=== PATIENT | male | born 1940 | race Caucasian/White ===

== ENCOUNTER → 2016-12-25 | Outpatient (CLI) | payer MEDICARE, OTHER ==
[~2016-12-25] MED LIST: ASPI81TA50 PO; BUTA1CAP30 PO; FLUT9.9S NS; LORA-702 PO; MULT-658 PO; OMEG1CAP6 PO; TAMS0.4C2 PO; VALS80TA3 PO; VITA200C7 PO
[2016-12-25 10:58] LABS: PTH INTACT INTERPRETATION ** Comment **
[2016-12-25 11:31] LABS: PATH.CAST-FLAG NOT PRESENT; SPERM-FLAG NOT PRESENT; SRC-FLAG NOT PRESENT; XTAL-FLAG NOT PRESENT; YLC-FLAG NOT PRESENT
[2016-12-25 11:35] LABS: HEMATOCRIT 42.6 % (39.2-51.8); HEMOGLOBIN 14.5 g/dL (13.7-18.0); WHITE BLOOD COUNT 6.5 x10^3/uL (3.4-10)
[2016-12-25 11:37] LABS: BLOOD UREA NITROGEN 32 mg/dL (7-18)
[2016-12-25 11:41] LABS: ASPARTATE AMINO TRANSFERASE 33 U/L (15-37); FERRITIN 159.1 ng/mL (26-388); TOTAL IRON BINDING CAPACITY 312 mcg/dL (250-450)
[2016-12-25 11:46] LABS: PARATHYROID HORMONE INTACT 106.1 pg/mL (14-72)
[2016-12-26 13:42] LABS: ANA SCREEN NEGATIVE (Negative)
[2016-12-27 12:07] LABS: A/G RATIO 1.1 (0.7-1.7); ALBUMIN 3.9 g/dL (2.9-4.4); ALPHA-1-GLOBULIN 0.2 g/dL (0.0-0.4); GAMMA GLOBULIN 1.5 g/dL (0.4-1.8); PROTEIN TOTAL 7.4 g/dL (6.0-8.5)
[2016-12-28 03:06] LABS: COMPLEMENT C3 138 mg/dL (82-167); COMPLEMENT C4 25 mg/dL (14-44); COMPLEMENT TOTAL (CH50) >60 U/mL (42-60)
[2016-12-28 12:07] LABS: UR ALBUMIN 55.5 % (.); UR ALPHA-1-GLOBULIN 5.1 % (.); UR ALPHA-2-GLOBULIN 12.3 % (.); UR BETA GLOBULIN 18.9 % (.); UR GAMMA GLOBULIN 8.2 % (.); UR M-SPIKE % 7.5 % (Not Observed)
== END | disposition home or self-care (01) ==
LOC: LAB 10:32
DX: I12.9 Hypertensive chronic kidney disease with stage 1 through stage 4 chronic kidney disease, or unspecified chronic kidney disease (principal); N18.4 Chronic kidney disease, stage 4 (severe); D64.9 Anemia, unspecified; R80.3 Bence Jones proteinuria; R31.1 Benign essential microscopic hematuria; R06.02 Shortness of breath; R79.89 Other specified abnormal findings of blood chemistry
CPT/HCPCS: 36415; 80053; 80061; 80074; 81001; 82306; 82310; 82570; 82728; 83036; 83516; 83540; 83550; 83735; 83970; 84100; 84155; 84156; 84165; 84166; 84550; 85025; 85651; 86038; 86160; 86162; 86225; 86256; 93005

== ENCOUNTER → 2016-12-25 | Outpatient (CLI) | payer MEDICARE, OTHER | END | disposition home or self-care (01) | LOC: OUT 09:08 → EDSTATUS 09:45 | PROVIDERS: ATTEND Internal Medicine Nephrology | DX: N40.1 Benign prostatic hyperplasia with lower urinary tract symptoms (principal); D64.9 Anemia, unspecified; I12.9 Hypertensive chronic kidney disease with stage 1 through stage 4 chronic kidney disease, or unspecified chronic kidney disease; N18.4 Chronic kidney disease, stage 4 (severe) | CPT/HCPCS: 71020; 76770 ==

== ENCOUNTER → 2017-03-12 | Outpatient (CLI) | payer MEDICARE, OTHER ==
[2017-03-12 11:18] LABS: HEMOGLOBIN 11.4 g/dL (13.7-18.0); WHITE BLOOD COUNT 7.3 x10^3/uL (3.4-10)
[2017-03-12 11:23] LABS: ASPARTATE AMINO TRANSFERASE 19 U/L (15-37); BLOOD UREA NITROGEN 34 mg/dL (7-18)
== END | disposition home or self-care (01) ==
LOC: LAB 10:55
PROVIDERS: ATTEND Internal Medicine Nephrology
DX: I12.9 Hypertensive chronic kidney disease with stage 1 through stage 4 chronic kidney disease, or unspecified chronic kidney disease (principal); N18.4 Chronic kidney disease, stage 4 (severe); R80.3 Bence Jones proteinuria; R31.1 Benign essential microscopic hematuria; D64.9 Anemia, unspecified; E85.9 Amyloidosis, unspecified; R06.02 Shortness of breath
CPT/HCPCS: 36415; 80053; 81001; 83735; 84100; 84550; 85025

== ENCOUNTER → 2017-04-23 | Outpatient (CLI) | payer MEDICARE, OTHER ==
[2017-04-23 10:13] LABS: BASOPHILS # (AUTO) 0.05 x10^3/uL (0-0.1); BASOPHILS % (AUTO) 1 % (0-1); EOSINOPHILS # (AUTO) 0.51 x10^3/uL (0-0.4); EOSINOPHILS % (AUTO) 9 % (1-7); LYMPHOCYTES # (AUTO) 0.99 x10^3/uL (1-3.4); LYMPHOCYTES % (AUTO) 19 % (22-44); MD NO; MEAN CORPUSCULAR HEMOGLOBIN 31.8 pg (27.5-34.5); MEAN CORPUSCULAR HGB CONC 33.5 g/dL (33.2-36.2); MEAN CORPUSCULAR VOLUME 94.9 fL (81-97); MEAN PLATELET VOLUME 6.9 fL (7.4-10.4); MONOCYTES # (AUTO) 0.74 x10^3/uL (0.2-0.8); MONOCYTES % (AUTO) 14 % (2-9); NEUTROPHILS % (AUTO) 58 % (42-75); PLATELET COUNT 225 x10^3/uL (130-400); RED CELL DISTRIBUTION WIDTH 16.9 % (9.4-14.8)
[2017-04-23 10:23] LABS: MICROSCOPIC AUTO
[2017-04-23 10:24] LABS: CALCIUM 8.7 mg/dL (8.5-10.1)
[2017-04-23 10:28] LABS: ALANINE AMINOTRANSFERASE 31 U/L (12-78); ALBUMIN 3.6 g/dL (3.4-5.0); ANION GAP 5 mmol/L (5-15); CHLORIDE 107 mmol/L (98-107); CREATININE 2.95 mg/dL (0.7-1.3)
[2017-04-23 10:30] LABS: ALKALINE PHOSPHATASE 120 U/L (45-117); BILIRUBIN,TOTAL 0.3 mg/dL (0.2-1.0); CALCIUM 8.6 mg/dL (8.5-10.1); TOTAL PROTEIN 7.4 g/dL (6.4-8.2)
== END | disposition home or self-care (01) ==
LOC: LAB 09:56
PROVIDERS: ATTEND Internal Medicine Nephrology
DX: I12.9 Hypertensive chronic kidney disease with stage 1 through stage 4 chronic kidney disease, or unspecified chronic kidney disease (principal); N18.4 Chronic kidney disease, stage 4 (severe); E85.9 Amyloidosis, unspecified; R80.3 Bence Jones proteinuria; R31.1 Benign essential microscopic hematuria
CPT/HCPCS: 36415; 80053; 81001; 82310; 82570; 83970; 84100; 84156; 85025

== ENCOUNTER → 2017-05-30 | Outpatient (CLI) | payer MEDICARE, OTHER ==
[2017-05-30 10:45] LABS: BASOPHILS # (AUTO) 0.03 x10^3/uL (0-0.1); BASOPHILS % (AUTO) 1 % (0-1); EOSINOPHILS # (AUTO) 0.62 x10^3/uL (0-0.4); EOSINOPHILS % (AUTO) 11 % (1-7); LYMPHOCYTES % (AUTO) 23 % (22-44); MD NO; MEAN CORPUSCULAR HEMOGLOBIN 32.6 pg (27.5-34.5); MEAN CORPUSCULAR HGB CONC 33.8 g/dL (33.2-36.2); MEAN CORPUSCULAR VOLUME 96.5 fL (81-97); MEAN PLATELET VOLUME 7.8 fL (7.4-10.4); MONOCYTES # (AUTO) 0.76 x10^3/uL (0.2-0.8); MONOCYTES % (AUTO) 13 % (2-9); NEUTROPHILS # (AUTO) 3.01 x10^3/uL (1.8-6.8); NEUTROPHILS % (AUTO) 53 % (42-75); PLATELET COUNT 184 x10^3/uL (130-400); RED BLOOD COUNT 3.74 x10^6/uL (4.38-5.82); RED CELL DISTRIBUTION WIDTH 15.4 % (9.4-14.8)
[2017-05-30 10:51] LABS: ALANINE AMINOTRANSFERASE 30 U/L (12-78); ALBUMIN 3.7 g/dL (3.4-5.0); ANION GAP 7 mmol/L (5-15); CALCIUM 8.2 mg/dL (8.5-10.1); CHLORIDE 108 mmol/L (98-107); CREATININE 3.24 mg/dL (0.7-1.3)
[2017-05-30 10:53] LABS: ALKALINE PHOSPHATASE 113 U/L (45-117); BILIRUBIN,TOTAL 0.3 mg/dL (0.2-1.0); TOTAL PROTEIN 7.1 g/dL (6.4-8.2)
[2017-05-30 10:59] LABS: MICROSCOPIC AUTO
== END | disposition home or self-care (01) ==
LOC: LAB 10:22
PROVIDERS: ATTEND Internal Medicine Nephrology
DX: I12.9 Hypertensive chronic kidney disease with stage 1 through stage 4 chronic kidney disease, or unspecified chronic kidney disease (principal); N18.4 Chronic kidney disease, stage 4 (severe); D63.1 Anemia in chronic kidney disease; E85.9 Amyloidosis, unspecified; R80.9 Proteinuria, unspecified; R06.02 Shortness of breath
CPT/HCPCS: 36415; 80053; 81001; 82306; 82570; 83970; 84100; 84156; 85025

== ENCOUNTER → 2017-07-23 | Outpatient (CLI) | payer MEDICARE, OTHER ==
[2017-07-23 10:26] LABS: BASOPHILS # (AUTO) 0.03 x10^3/uL (0-0.1); BASOPHILS % (AUTO) 0 % (0-1); EOSINOPHILS # (AUTO) 0.68 x10^3/uL (0-0.4); EOSINOPHILS % (AUTO) 9 % (1-7); LYMPHOCYTES # (AUTO) 1.34 x10^3/uL (1-3.4); LYMPHOCYTES % (AUTO) 18 % (22-44); MD NO; MEAN CORPUSCULAR HEMOGLOBIN 33.2 pg (27.5-34.5); MEAN CORPUSCULAR HGB CONC 34.6 g/dL (33.2-36.2); MEAN CORPUSCULAR VOLUME 95.8 fL (81-97); MEAN PLATELET VOLUME 7.9 fL (7.4-10.4); MONOCYTES # (AUTO) 0.76 x10^3/uL (0.2-0.8); MONOCYTES % (AUTO) 10 % (2-9); NEUTROPHILS # (AUTO) 4.72 x10^3/uL (1.8-6.8); NEUTROPHILS % (AUTO) 63 % (42-75); PLATELET COUNT 235 x10^3/uL (130-400); RED BLOOD COUNT 4.26 x10^6/uL (4.38-5.82)
[2017-07-23 10:27] LABS: MICROSCOPIC AUTO
[2017-07-23 10:35] LABS: ALBUMIN 3.9 g/dL (3.4-5.0); ANION GAP 7 mmol/L (5-15); CALCIUM 8.9 mg/dL (8.5-10.1); CHLORIDE 106 mmol/L (98-107)
[2017-07-23 10:39] LABS: ALANINE AMINOTRANSFERASE 32 U/L (12-78); ALKALINE PHOSPHATASE 114 U/L (45-117); BILIRUBIN,TOTAL 0.5 mg/dL (0.2-1.0); CREATININE 3.45 mg/dL (0.7-1.3); TOTAL PROTEIN 7.8 g/dL (6.4-8.2)
== END | disposition home or self-care (01) ==
LOC: LAB 10:02
PROVIDERS: ATTEND Internal Medicine Nephrology
DX: I12.9 Hypertensive chronic kidney disease with stage 1 through stage 4 chronic kidney disease, or unspecified chronic kidney disease (principal); N18.4 Chronic kidney disease, stage 4 (severe); D63.1 Anemia in chronic kidney disease; E85.9 Amyloidosis, unspecified; R80.9 Proteinuria, unspecified
CPT/HCPCS: 36415; 80053; 81001; 82570; 84100; 84156; 85025

== ENCOUNTER → 2017-09-03 | Outpatient (CLI) | payer MEDICARE, OTHER ==
[2017-09-03 10:27] LABS: BASOPHILS # (AUTO) 0.02 x10^3/uL (0-0.1); BASOPHILS % (AUTO) 0 % (0-1); EOSINOPHILS % (AUTO) 8 % (1-7); LYMPHOCYTES # (AUTO) 1.05 x10^3/uL (1-3.4); LYMPHOCYTES % (AUTO) 20 % (22-44); MD NO; MEAN CORPUSCULAR HEMOGLOBIN 32.1 pg (27.5-34.5); MEAN CORPUSCULAR HGB CONC 34.3 g/dL (33.2-36.2); MEAN CORPUSCULAR VOLUME 93.4 fL (81-97); MEAN PLATELET VOLUME 7.7 fL (7.4-10.4); MONOCYTES # (AUTO) 0.73 x10^3/uL (0.2-0.8); MONOCYTES % (AUTO) 14 % (2-9); NEUTROPHILS # (AUTO) 3.05 x10^3/uL (1.8-6.8); NEUTROPHILS % (AUTO) 58 % (42-75); PLATELET COUNT 194 x10^3/uL (130-400); RED BLOOD COUNT 3.85 x10^6/uL (4.38-5.82); RED CELL DISTRIBUTION WIDTH 12.8 % (9.4-14.8)
[2017-09-03 10:31] LABS: MICROSCOPIC AUTO
[2017-09-03 10:39] LABS: ALANINE AMINOTRANSFERASE 32 U/L (12-78); ALBUMIN 3.7 g/dL (3.4-5.0); ANION GAP 7 mmol/L (5-15); CALCIUM 8.5 mg/dL (8.5-10.1); CHLORIDE 110 mmol/L (98-107); CREATININE 4.57 mg/dL (0.7-1.3)
[2017-09-03 10:41] LABS: ALKALINE PHOSPHATASE 103 U/L (45-117); BILIRUBIN,TOTAL 0.6 mg/dL (0.2-1.0); CREATININE,URINE RANDOM 88.4 mg/dL; TOTAL PROTEIN 7.4 g/dL (6.4-8.2)
== END | disposition home or self-care (01) ==
LOC: LAB 10:00
PROVIDERS: ATTEND Internal Medicine Nephrology
DX: I12.9 Hypertensive chronic kidney disease with stage 1 through stage 4 chronic kidney disease, or unspecified chronic kidney disease (principal); N18.4 Chronic kidney disease, stage 4 (severe); E85.9 Amyloidosis, unspecified; R80.9 Proteinuria, unspecified
CPT/HCPCS: 36415; 80053; 81001; 82570; 84100; 84156; 84550; 85025

== ENCOUNTER → 2017-09-24 | Outpatient (CLI) | payer MEDICARE, OTHER ==
[2017-09-24 11:28] LABS: ALANINE AMINOTRANSFERASE 29 U/L (12-78); ALBUMIN 3.8 g/dL (3.4-5.0); ANION GAP 9 mmol/L (5-15); CALCIUM 8.4 mg/dL (8.5-10.1); CHLORIDE 104 mmol/L (98-107); CREATININE 3.52 mg/dL (0.7-1.3)
[2017-09-24 11:30] LABS: ALKALINE PHOSPHATASE 93 U/L (45-117); BILIRUBIN,TOTAL 0.9 mg/dL (0.2-1.0); TOTAL PROTEIN 7.6 g/dL (6.4-8.2)
[2017-09-24 11:50] LABS: CREATININE,URINE RANDOM 92.8 mg/dL
[2017-09-24 11:55] LABS: MICROSCOPIC AUTO
== END | disposition home or self-care (01) ==
LOC: LAB 10:59
PROVIDERS: ATTEND Internal Medicine Nephrology
DX: I12.9 Hypertensive chronic kidney disease with stage 1 through stage 4 chronic kidney disease, or unspecified chronic kidney disease (principal); N18.5 Chronic kidney disease, stage 5; E85.9 Amyloidosis, unspecified; R80.9 Proteinuria, unspecified
CPT/HCPCS: 36415; 80053; 81001; 82570; 84100; 84156

== ENCOUNTER 2017-10-01 10:20 | Day surgery (SDC) | payer MEDICARE, OTHER ==
[~2017-10-01] VITALS: Ht 185.4 cm; Wt 80.1 kg
[~2017-10-01 10:20] MED LIST changes: +HEPARIN 1,000 UNITS/ML, 10ML ONE
[2017-10-01] MEDS ORDERED: SODIUM CHLORIDE 0.9% 1,000 ML IV SCH (11:14)
[2017-10-01 11:37] VITALS: BP 154/96
[2017-10-01] MEDS ORDERED: BORT3.5V SQ (11:54)
[2017-10-01] MEDS ORDERED: DEXAMETHASONE PO (11:54)
[2017-10-01] MEDS ORDERED: AMLO10TA2 PO (11:54)
[2017-10-01] MEDS ORDERED: CYCL50CA3 PO (11:54)
[2017-10-01] MEDS ORDERED: METO5TAB2 PO (11:54)
[2017-10-01] MEDS ORDERED: FENTANYL PF 100 MCG/2ML ONE (15:33)
[2017-10-01] MEDS ORDERED: EPHEDRINE 50 MG/ML, 1ML ONE (15:45)
[2017-10-01] MEDS ORDERED: PROPOFOL 10 MG/ML, 20ML ONE ×8 (15:53)
[2017-10-01] MEDS ORDERED: ONDANSETRON 2MG/ML, 2ML ONE ×7 (15:53)
[2017-10-01] MEDS ORDERED: DEXAMETHASONE 4 MG/ML, 1ML ONE ×5 (15:53)
[2017-10-01] MEDS ORDERED: CEFAZOLIN 1,000 MG ONE ×9 (15:53)
[2017-10-01] MEDS ORDERED: LABETALOL 5MG/ML, 20ML IV PRN (17:00)
[2017-10-01] MEDS ORDERED: HYDROcodone/APAP 7.5-325MG/15ML UDC PO PRN (17:00)
[2017-10-01] MEDS ORDERED: OXYcodone 5 MG/5 ML ORAL.SOL UDC PO PRN (17:00)
[2017-10-01] MEDS ORDERED: hydrALAzine 20 MG/ML, 1ML IV PRN (17:00)
[2017-10-01] MEDS ORDERED: ACETAMINOPHEN 325 MG TABLET PO PRN (17:00)
[2017-10-01] MEDS ORDERED: FENTANYL PF 100 MCG/2ML IV PRN (17:00)
[2017-10-01] MEDS ORDERED: ONDANSETRON ODT 8 MG PO PRN (17:00)
== END 2017-10-01 18:35 ==
LOC: OUT 10:20
PROVIDERS: ATTEND Surgery Vascular Surgery
DX: I12.0 Hypertensive chronic kidney disease with stage 5 chronic kidney disease or end stage renal disease (principal); N18.6 End stage renal disease
CPT/HCPCS: 36415; 36821; 80047; 93005; J0690; J1100; J1644; J2405; J2704; J3010; J7030

== ENCOUNTER → 2017-10-29 | Outpatient (CLI) | payer MEDICARE, OTHER ==
[~2017-10-29] MED LIST changes: +AMLO10TA2 PO; +BORT3.5V SQ; +CYCL50CA3 PO; +DEXAMETHASONE PO; -HEPARIN 1,000 UNITS/ML, 10ML ONE; +METO5TAB2 PO
[2017-10-29 10:44] LABS: BASOPHILS # (AUTO) 0.04 x10^3/uL (0-0.1); BASOPHILS % (AUTO) 1 % (0-1); EOSINOPHILS # (AUTO) 0.29 x10^3/uL (0-0.4); EOSINOPHILS % (AUTO) 7 % (1-7); LYMPHOCYTES # (AUTO) 0.51 x10^3/uL (1-3.4); LYMPHOCYTES % (AUTO) 12 % (22-44); MD NO; MEAN CORPUSCULAR HEMOGLOBIN 30.5 pg (27.5-34.5); MEAN CORPUSCULAR HGB CONC 33.3 g/dL (33.2-36.2); MEAN CORPUSCULAR VOLUME 91.6 fL (81-97); MEAN PLATELET VOLUME 7.8 fL (7.4-10.4); MONOCYTES # (AUTO) 0.66 x10^3/uL (0.2-0.8); MONOCYTES % (AUTO) 15 % (2-9); NEUTROPHILS # (AUTO) 2.89 x10^3/uL (1.8-6.8); NEUTROPHILS % (AUTO) 66 % (42-75); PLATELET COUNT 281 x10^3/uL (130-400); RED BLOOD COUNT 3.37 x10^6/uL (4.38-5.82); RED CELL DISTRIBUTION WIDTH 13.8 % (9.4-14.8)
[2017-10-29 10:47] LABS: MICROSCOPIC INDICATED
[2017-10-29 10:54] LABS: ALANINE AMINOTRANSFERASE 33 U/L (12-78); ALBUMIN 2.9 g/dL (3.4-5.0); ANION GAP 10 mmol/L (5-15); CALCIUM 8.3 mg/dL (8.5-10.1); CHLORIDE 108 mmol/L (98-107); CREATININE 3.99 mg/dL (0.7-1.3)
[2017-10-29 10:56] LABS: ALKALINE PHOSPHATASE 99 U/L (45-117); BILIRUBIN,TOTAL 0.3 mg/dL (0.2-1.0); TOTAL PROTEIN 6.5 g/dL (6.4-8.2)
== END | disposition home or self-care (01) ==
LOC: LAB 10:24
PROVIDERS: ATTEND Internal Medicine Nephrology
DX: I12.9 Hypertensive chronic kidney disease with stage 1 through stage 4 chronic kidney disease, or unspecified chronic kidney disease (principal); N18.5 Chronic kidney disease, stage 5; E85.9 Amyloidosis, unspecified; R80.9 Proteinuria, unspecified
CPT/HCPCS: 36415; 80053; 81001; 82570; 84100; 84156; 85025

== ENCOUNTER → 2017-11-01 | Outpatient (CLI) | payer MEDICARE, OTHER ==
[2017-11-01 13:26] LABS: MICROSCOPIC INDICATED
[2017-11-01 13:27] LABS: CULTURE INDICATED? ORDERED BY PHYSICIAN
== END | disposition home or self-care (01) ==
LOC: LAB 13:05
PROVIDERS: ATTEND Internal Medicine Nephrology
DX: J43.9 Emphysema, unspecified (principal); R82.71 Bacteriuria
CPT/HCPCS: 71046; 81001; 87086

== ENCOUNTER → 2017-11-22 | Outpatient (CLI) | payer MEDICARE, OTHER ==
[2017-11-22 10:48] LABS: MEAN CORPUSCULAR HEMOGLOBIN 30.1 pg (27.5-34.5); MEAN CORPUSCULAR HGB CONC 33.4 g/dL (33.2-36.2); MEAN CORPUSCULAR VOLUME 90.1 fL (81-97); MEAN PLATELET VOLUME 7.6 fL (7.4-10.4); PLATELET COUNT 303 x10^3/uL (130-400); RED BLOOD COUNT 3.75 x10^6/uL (4.38-5.82); RED CELL DISTRIBUTION WIDTH 15.8 % (9.4-14.8)
[2017-11-22 10:59] LABS: ALBUMIN 3.1 g/dL (3.4-5.0); ANION GAP 7 mmol/L (5-15); CALCIUM 8.4 mg/dL (8.5-10.1); CHLORIDE 107 mmol/L (98-107)
[2017-11-22 11:02] LABS: % IRON SATURATION 17 % (20-55); ALANINE AMINOTRANSFERASE 26 U/L (12-78); ALKALINE PHOSPHATASE 137 U/L (45-117); BILIRUBIN,TOTAL 0.3 mg/dL (0.2-1.0); CREATININE 3.69 mg/dL (0.7-1.3); IRON LEVEL 47 mcg/dL (65-175); TOTAL IRON BINDING CAPACITY 269 mcg/dL (250-450); TOTAL PROTEIN 7.1 g/dL (6.4-8.2)
[2017-11-22 11:19] LABS: MICROSCOPIC INDICATED
[2017-11-22 11:23] LABS: BASOPHILS # (AUTO) 0.04 x10^3/uL (0-0.1); BASOPHILS % (AUTO) 1 % (0-1); EOSINOPHILS # (AUTO) 0.57 x10^3/uL (0-0.4); EOSINOPHILS % (AUTO) 6 % (1-7); LYMPHOCYTES % (AUTO) 19 % (22-44); MD SCAN; MONOCYTES # (AUTO) 1.48 x10^3/uL (0.2-0.8); MONOCYTES % (AUTO) 16 % (2-9); NEUTROPHILS # (AUTO) 5.35 x10^3/uL (1.8-6.8); NEUTROPHILS % (AUTO) 58 % (42-75)
[2017-11-22 11:56] LABS: CULTURE INDICATED? NO
== END | disposition home or self-care (01) ==
LOC: LAB 10:26
PROVIDERS: ATTEND Internal Medicine Nephrology
DX: I12.0 Hypertensive chronic kidney disease with stage 5 chronic kidney disease or end stage renal disease (principal); N18.5 Chronic kidney disease, stage 5; E85.9 Amyloidosis, unspecified; R80.9 Proteinuria, unspecified
CPT/HCPCS: 36415; 80053; 81001; 82570; 82728; 83540; 83550; 84100; 84156; 85025

== ENCOUNTER → 2017-12-21 | Outpatient (CLI) | payer MEDICARE, OTHER ==
[~2017-12-21] MED LIST changes: -AMLO10TA2 PO; +AMLO10TA6 PO
[2017-12-21 09:25] LABS: MEAN CORPUSCULAR HGB CONC 33.3 g/dL (33.2-36.2); MEAN CORPUSCULAR VOLUME 90.1 fL (81-97); MEAN PLATELET VOLUME 8.6 fL (7.4-10.4); PLATELET COUNT 130 x10^3/uL (130-400); RED CELL DISTRIBUTION WIDTH 15.2 % (9.4-14.8)
[2017-12-21 09:33] LABS: ALANINE AMINOTRANSFERASE 24 U/L (12-78); ALBUMIN 3.4 g/dL (3.4-5.0); ANION GAP 7 mmol/L (5-15); CALCIUM 8.5 mg/dL (8.5-10.1); CHLORIDE 106 mmol/L (98-107); CREATININE 4.27 mg/dL (0.7-1.3)
[2017-12-21 09:35] LABS: ALKALINE PHOSPHATASE 125 U/L (45-117); BILIRUBIN,TOTAL 0.3 mg/dL (0.2-1.0); TOTAL PROTEIN 7.1 g/dL (6.4-8.2)
[2017-12-21 10:28] LABS: MICROSCOPIC INDICATED
[2017-12-21 11:09] LABS: CULTURE INDICATED? NO
== END | disposition home or self-care (01) ==
LOC: LAB 09:03
PROVIDERS: ATTEND Internal Medicine Nephrology
DX: I12.9 Hypertensive chronic kidney disease with stage 1 through stage 4 chronic kidney disease, or unspecified chronic kidney disease (principal); N18.4 Chronic kidney disease, stage 4 (severe); D63.1 Anemia in chronic kidney disease; E55.9 Vitamin D deficiency, unspecified; E85.9 Amyloidosis, unspecified; R80.1 Persistent proteinuria, unspecified
CPT/HCPCS: 36415; 80053; 81001; 81003; 82570; 84100; 84156; 85027

== ENCOUNTER → 2018-01-07 | Outpatient (CLI) | payer MEDICARE, OTHER ==
[2018-01-07 10:17] LABS: MICROSCOPIC AUTO
[2018-01-07 10:19] LABS: CULTURE INDICATED? NO
[2018-01-07 10:28] LABS: ALANINE AMINOTRANSFERASE 22 U/L (12-78); ALBUMIN 3.7 g/dL (3.4-5.0); ANION GAP 12 mmol/L (5-15); CALCIUM 8.6 mg/dL (8.5-10.1); CHLORIDE 105 mmol/L (98-107); CREATININE 4.55 mg/dL (0.7-1.3)
[2018-01-07 10:31] LABS: ALKALINE PHOSPHATASE 100 U/L (45-117); BILIRUBIN,TOTAL 0.4 mg/dL (0.2-1.0); TOTAL PROTEIN 7.3 g/dL (6.4-8.2)
== END | disposition home or self-care (01) ==
LOC: LAB 09:58
PROVIDERS: ATTEND Internal Medicine Nephrology
DX: I12.9 Hypertensive chronic kidney disease with stage 1 through stage 4 chronic kidney disease, or unspecified chronic kidney disease (principal); N18.4 Chronic kidney disease, stage 4 (severe); D63.1 Anemia in chronic kidney disease; E55.9 Vitamin D deficiency, unspecified; E85.9 Amyloidosis, unspecified; R80.1 Persistent proteinuria, unspecified
CPT/HCPCS: 36415; 80053; 81001; 82570; 84156

== ENCOUNTER → 2018-01-23 | Outpatient (CLI) | payer MEDICARE, OTHER ==
[2018-01-23 10:58] LABS: ANION GAP 9 mmol/L (5-15); CALCIUM 8.9 mg/dL (8.5-10.1); CHLORIDE 102 mmol/L (98-107); CREATININE 4.47 mg/dL (0.7-1.3)
[2018-01-23 11:00] LABS: MICROSCOPIC INDICATED
[2018-01-23 11:20] LABS: CULTURE INDICATED? NO
== END | disposition home or self-care (01) ==
LOC: LAB 10:21
PROVIDERS: ATTEND Internal Medicine Nephrology
DX: I12.9 Hypertensive chronic kidney disease with stage 1 through stage 4 chronic kidney disease, or unspecified chronic kidney disease (principal); N18.5 Chronic kidney disease, stage 5; E85.9 Amyloidosis, unspecified; R80.1 Persistent proteinuria, unspecified; R60.9 Edema, unspecified
CPT/HCPCS: 36415; 80069; 81001; 82570; 84156

== ENCOUNTER → 2018-02-06 | Outpatient (CLI) | payer MEDICARE, OTHER ==
[2018-02-06 10:46] LABS: MICROSCOPIC AUTO
[2018-02-06 10:58] LABS: % IRON SATURATION 25 % (20-55); ALANINE AMINOTRANSFERASE 24 U/L (12-78); ALBUMIN 3.8 g/dL (3.4-5.0); ANION GAP 7 mmol/L (5-15); CALCIUM 8.5 mg/dL (8.5-10.1); CHLORIDE 106 mmol/L (98-107); CREATININE 4.17 mg/dL (0.7-1.3); IRON LEVEL 70 mcg/dL (65-175); TOTAL IRON BINDING CAPACITY 285 mcg/dL (250-450)
[2018-02-06 11:00] LABS: BASOPHILS # (AUTO) 0.02 x10^3/uL (0-0.1); BASOPHILS % (AUTO) 0 % (0-1); EOSINOPHILS # (AUTO) 0.32 x10^3/uL (0-0.4); EOSINOPHILS % (AUTO) 5 % (1-7); LYMPHOCYTES # (AUTO) 0.78 x10^3/uL (1-3.4); LYMPHOCYTES % (AUTO) 13 % (22-44); MD NO; MEAN CORPUSCULAR HEMOGLOBIN 29.4 pg (27.5-34.5); MEAN CORPUSCULAR HGB CONC 33.1 g/dL (33.2-36.2); MEAN CORPUSCULAR VOLUME 89.1 fL (81-97); MONOCYTES # (AUTO) 0.81 x10^3/uL (0.2-0.8); MONOCYTES % (AUTO) 14 % (2-9); NEUTROPHILS # (AUTO) 3.92 x10^3/uL (1.8-6.8); NEUTROPHILS % (AUTO) 67 % (42-75); PLATELET COUNT 128 x10^3/uL (130-400); RED BLOOD COUNT 4.23 x10^6/uL (4.38-5.82); RED CELL DISTRIBUTION WIDTH 14.5 % (9.4-14.8)
[2018-02-06 11:01] LABS: ALKALINE PHOSPHATASE 106 U/L (45-117); BILIRUBIN,TOTAL 0.4 mg/dL (0.2-1.0); TOTAL PROTEIN 7.6 g/dL (6.4-8.2)
== END | disposition home or self-care (01) ==
LOC: LAB 10:11
PROVIDERS: ATTEND Internal Medicine Nephrology
DX: N18.5 Chronic kidney disease, stage 5 (principal); D63.1 Anemia in chronic kidney disease; E85.9 Amyloidosis, unspecified; E55.9 Vitamin D deficiency, unspecified; R80.1 Persistent proteinuria, unspecified
CPT/HCPCS: 36415; 80053; 81001; 82043; 82306; 82330; 82570; 82728; 82784; 83540; 83550; 83883; 83970; 84155; 84156; 84165; 85025; 86334

== ENCOUNTER → 2018-02-28 | Outpatient (CLI) | payer MEDICARE, OTHER ==
[2018-02-28 10:39] LABS: BASOPHILS # (AUTO) 0.02 x10^3/uL (0-0.1); BASOPHILS % (AUTO) 0 % (0-1); EOSINOPHILS # (AUTO) 0.39 x10^3/uL (0-0.4); EOSINOPHILS % (AUTO) 8 % (1-7); LYMPHOCYTES # (AUTO) 0.69 x10^3/uL (1-3.4); LYMPHOCYTES % (AUTO) 13 % (22-44); MD NO; MEAN CORPUSCULAR HEMOGLOBIN 29.5 pg (27.5-34.5); MEAN CORPUSCULAR HGB CONC 33.4 g/dL (33.2-36.2); MEAN CORPUSCULAR VOLUME 88.2 fL (81-97); MEAN PLATELET VOLUME 8.8 fL (7.4-10.4); MONOCYTES # (AUTO) 0.72 x10^3/uL (0.2-0.8); MONOCYTES % (AUTO) 14 % (2-9); NEUTROPHILS # (AUTO) 3.42 x10^3/uL (1.8-6.8); NEUTROPHILS % (AUTO) 65 % (42-75); PLATELET COUNT 183 x10^3/uL (130-400); RED BLOOD COUNT 4.31 x10^6/uL (4.38-5.82); RED CELL DISTRIBUTION WIDTH 14.3 % (9.4-14.8)
[2018-02-28 10:42] LABS: MICROSCOPIC AUTO
[2018-02-28 10:44] LABS: CULTURE INDICATED? NO
[2018-02-28 10:49] LABS: ALANINE AMINOTRANSFERASE 26 U/L (12-78); ALBUMIN 3.8 g/dL (3.4-5.0); ANION GAP 9 mmol/L (5-15); CALCIUM 8.4 mg/dL (8.5-10.1); CHLORIDE 105 mmol/L (98-107); CREATININE 4.65 mg/dL (0.7-1.3)
[2018-02-28 10:51] LABS: ALKALINE PHOSPHATASE 100 U/L (45-117); BILIRUBIN,TOTAL 0.3 mg/dL (0.2-1.0); TOTAL PROTEIN 7.5 g/dL (6.4-8.2)
== END | disposition home or self-care (01) ==
LOC: LAB 10:11
PROVIDERS: ATTEND Nurse Practitioner Gerontology
DX: I12.9 Hypertensive chronic kidney disease with stage 1 through stage 4 chronic kidney disease, or unspecified chronic kidney disease (principal); D63.1 Anemia in chronic kidney disease; N18.5 Chronic kidney disease, stage 5; E85.9 Amyloidosis, unspecified; R53.0 Neoplastic (malignant) related fatigue
CPT/HCPCS: 36415; 80053; 81001; 82232; 82784; 83883; 84155; 84165; 85025

== ENCOUNTER → 2018-03-18 | Outpatient (CLI) | payer MEDICARE, OTHER ==
[2018-03-18 10:37] LABS: MEAN CORPUSCULAR HEMOGLOBIN 30.2 pg (27.5-34.5); MEAN CORPUSCULAR HGB CONC 34.1 g/dL (33.2-36.2); MEAN CORPUSCULAR VOLUME 88.4 fL (81-97); MEAN PLATELET VOLUME 8.3 fL (7.4-10.4); PLATELET COUNT 195 x10^3/uL (130-400); RED BLOOD COUNT 4.54 x10^6/uL (4.38-5.82); RED CELL DISTRIBUTION WIDTH 14.3 % (9.4-14.8)
[2018-03-18 10:39] LABS: MICROSCOPIC AUTO
[2018-03-18 10:48] LABS: ANION GAP 12 mmol/L (5-15); CALCIUM 8.6 mg/dL (8.5-10.1); CHLORIDE 102 mmol/L (98-107)
[2018-03-18 10:49] LABS: CREATININE 4.73 mg/dL (0.7-1.3)
[2018-03-18 10:50] LABS: CREATININE,URINE RANDOM 48.9 mg/dL
== END | disposition home or self-care (01) ==
LOC: LAB 10:08
PROVIDERS: ATTEND Internal Medicine Nephrology
DX: I12.9 Hypertensive chronic kidney disease with stage 1 through stage 4 chronic kidney disease, or unspecified chronic kidney disease (principal); N18.4 Chronic kidney disease, stage 4 (severe); E85.9 Amyloidosis, unspecified; R80.9 Proteinuria, unspecified
CPT/HCPCS: 36415; 80069; 81001; 82570; 84156; 85027

== ENCOUNTER → 2018-06-07 | Outpatient (CLI) | payer MEDICARE, OTHER ==
[~2018-06-07] MED LIST changes: -AMLO10TA6 PO; +AMLO10TA8 PO
[2018-06-07 10:31] LABS: BASOPHILS # (AUTO) 0.02 x10^3/uL (0-0.1); BASOPHILS % (AUTO) 0 % (0-1); EOSINOPHILS # (AUTO) 0.62 x10^3/uL (0-0.4); EOSINOPHILS % (AUTO) 11 % (1-7); LYMPHOCYTES # (AUTO) 0.72 x10^3/uL (1-3.4); LYMPHOCYTES % (AUTO) 13 % (22-44); MD NO; MEAN CORPUSCULAR HEMOGLOBIN 31.9 pg (27.5-34.5); MEAN CORPUSCULAR HGB CONC 34.4 g/dL (33.2-36.2); MEAN CORPUSCULAR VOLUME 92.8 fL (81-97); MONOCYTES # (AUTO) 0.57 x10^3/uL (0.2-0.8); MONOCYTES % (AUTO) 10 % (2-9); NEUTROPHILS # (AUTO) 3.74 x10^3/uL (1.8-6.8); NEUTROPHILS % (AUTO) 66 % (42-75); PLATELET COUNT 168 x10^3/uL (130-400); RED CELL DISTRIBUTION WIDTH 14.5 % (9.4-14.8)
[2018-06-07 10:38] LABS: CHLORIDE 103 mmol/L (98-107)
[2018-06-07 10:43] LABS: ALBUMIN 3.9 g/dL (3.4-5.0); ANION GAP 8 mmol/L (5-15); CALCIUM 8.7 mg/dL (8.5-10.1); CREATININE 4.59 mg/dL (0.7-1.3)
[2018-06-07 10:54] LABS: CREATININE,URINE RANDOM 69.6 mg/dL
== END | disposition home or self-care (01) ==
LOC: LAB 10:13
PROVIDERS: ATTEND Internal Medicine Nephrology
DX: I12.0 Hypertensive chronic kidney disease with stage 5 chronic kidney disease or end stage renal disease (principal); N18.5 Chronic kidney disease, stage 5; E85.9 Amyloidosis, unspecified; R80.9 Proteinuria, unspecified; D63.1 Anemia in chronic kidney disease
CPT/HCPCS: 36415; 80069; 82570; 84156; 85025; 85027

== ENCOUNTER 2018-07-11 09:27 | Outpatient (CLI) | payer MEDICARE, OTHER ==
[2018-07-11 09:59] LABS: ALANINE AMINOTRANSFERASE 24 U/L (12-78); ANION GAP 8 mmol/L (5-15); CALCIUM 9.1 mg/dL (8.5-10.1); CHLORIDE 105 mmol/L (98-107); CREATININE 4.99 mg/dL (0.7-1.3)
[2018-07-11 10:01] LABS: ALKALINE PHOSPHATASE 112 U/L (45-117); BILIRUBIN,TOTAL 0.4 mg/dL (0.2-1.0); TOTAL PROTEIN 7.5 g/dL (6.4-8.2)
== END 2018-07-11 23:59 | disposition home or self-care (01) ==
LOC: LAB 09:27
PROVIDERS: ATTEND Internal Medicine Hematology & Oncology
DX: Z51.11 Encounter for antineoplastic chemotherapy (principal); E85.9 Amyloidosis, unspecified; R53.0 Neoplastic (malignant) related fatigue; Z91.048 Other nonmedicinal substance allergy status
CPT/HCPCS: 36415; 80053; 83883

== ENCOUNTER → 2018-07-17 | Outpatient (CLI) | payer MEDICARE, OTHER ==
[2018-07-17 10:25] LABS: MICROSCOPIC AUTO
[2018-07-17 10:28] LABS: MEAN CORPUSCULAR HEMOGLOBIN 32.1 pg (27.5-34.5); MEAN CORPUSCULAR HGB CONC 34.1 g/dL (33.2-36.2); MEAN PLATELET VOLUME 8.5 fL (7.4-10.4); PLATELET COUNT 164 x10^3/uL (130-400); RED BLOOD COUNT 3.96 x10^6/uL (4.38-5.82); RED CELL DISTRIBUTION WIDTH 13.4 % (9.4-14.8)
[2018-07-17 10:34] LABS: CREATININE,URINE RANDOM 50.5 mg/dL
[2018-07-17 10:35] LABS: ALBUMIN 3.9 g/dL (3.4-5.0); ANION GAP 8 mmol/L (5-15); CALCIUM 8.7 mg/dL (8.5-10.1); CHLORIDE 104 mmol/L (98-107); CREATININE 4.91 mg/dL (0.7-1.3)
== END | disposition home or self-care (01) ==
LOC: LAB 10:03
PROVIDERS: ATTEND Internal Medicine Nephrology
DX: I12.0 Hypertensive chronic kidney disease with stage 5 chronic kidney disease or end stage renal disease (principal); N18.5 Chronic kidney disease, stage 5; E85.9 Amyloidosis, unspecified; D63.1 Anemia in chronic kidney disease; N25.81 Secondary hyperparathyroidism of renal origin
CPT/HCPCS: 36415; 80069; 81001; 82570; 83970; 84156; 85027

== ENCOUNTER → 2018-08-22 | Outpatient (CLI) | payer MEDICARE, OTHER ==
[2018-08-22 09:14] LABS: MEAN CORPUSCULAR HEMOGLOBIN 32.3 pg (27.5-34.5); MEAN CORPUSCULAR HGB CONC 34.5 g/dL (33.2-36.2); MEAN CORPUSCULAR VOLUME 93.6 fL (81-97); MEAN PLATELET VOLUME 7.8 fL (7.4-10.4); PLATELET COUNT 190 x10^3/uL (130-400); RED BLOOD COUNT 3.76 x10^6/uL (4.38-5.82); RED CELL DISTRIBUTION WIDTH 12.9 % (9.4-14.8)
[2018-08-22 09:20] LABS: MICROSCOPIC INDICATED
[2018-08-22 09:23] LABS: ANION GAP 10 mmol/L (5-15); CHLORIDE 106 mmol/L (98-107); CREATININE 5.21 mg/dL (0.7-1.3)
[2018-08-22 09:27] LABS: CREATININE,URINE RANDOM 38.7 mg/dL
== END | disposition home or self-care (01) ==
LOC: LAB 08:53
PROVIDERS: ATTEND Internal Medicine Nephrology
DX: I12.0 Hypertensive chronic kidney disease with stage 5 chronic kidney disease or end stage renal disease (principal); N18.5 Chronic kidney disease, stage 5; D63.1 Anemia in chronic kidney disease; R31.9 Hematuria, unspecified; R80.9 Proteinuria, unspecified; E85.9 Amyloidosis, unspecified
CPT/HCPCS: 36415; 80069; 81001; 82570; 84156; 85027

== ENCOUNTER → 2018-09-12 | Outpatient (CLI) | payer MEDICARE, OTHER ==
[2018-09-12 10:45] LABS: ALANINE AMINOTRANSFERASE 28 U/L (12-78); ANION GAP 7 mmol/L (5-15); CALCIUM 8.9 mg/dL (8.5-10.1); CHLORIDE 107 mmol/L (98-107); CREATININE 5.39 mg/dL (0.7-1.3)
[2018-09-12 10:48] LABS: ALKALINE PHOSPHATASE 119 U/L (45-117); BILIRUBIN,TOTAL 0.2 mg/dL (0.2-1.0); TOTAL PROTEIN 7.3 g/dL (6.4-8.2)
== END | disposition home or self-care (01) ==
LOC: LAB 10:15
PROVIDERS: ATTEND Internal Medicine Hematology & Oncology
DX: Z51.11 Encounter for antineoplastic chemotherapy (principal); E85.9 Amyloidosis, unspecified; R53.0 Neoplastic (malignant) related fatigue
CPT/HCPCS: 36415; 80053; 82784; 83883; 84155; 84165; 86334

== ENCOUNTER → 2018-09-25 | Outpatient (CLI) | payer MEDICARE, OTHER ==
[2018-09-25 10:26] LABS: MICROSCOPIC AUTO
[2018-09-25 10:27] LABS: BASOPHILS # (AUTO) 0.01 x10^3/uL (0-0.1); BASOPHILS % (AUTO) 0 % (0-1); EOSINOPHILS # (AUTO) 0.42 x10^3/uL (0-0.4); EOSINOPHILS % (AUTO) 7 % (1-7); LYMPHOCYTES # (AUTO) 0.78 x10^3/uL (1-3.4); LYMPHOCYTES % (AUTO) 13 % (22-44); MD NO; MEAN CORPUSCULAR HEMOGLOBIN 31.5 pg (27.5-34.5); MEAN CORPUSCULAR HGB CONC 33.1 g/dL (33.2-36.2); MEAN PLATELET VOLUME 8.2 fL (7.4-10.4); MONOCYTES # (AUTO) 0.64 x10^3/uL (0.2-0.8); MONOCYTES % (AUTO) 11 % (2-9); NEUTROPHILS # (AUTO) 4.19 x10^3/uL (1.8-6.8); NEUTROPHILS % (AUTO) 70 % (42-75); PLATELET COUNT 174 x10^3/uL (130-400)
[2018-09-25 10:29] LABS: CALCIUM 8.8 mg/dL (8.5-10.1)
[2018-09-25 10:34] LABS: ALBUMIN 3.9 g/dL (3.4-5.0); ANION GAP 10 mmol/L (5-15); CALCIUM 8.7 mg/dL (8.5-10.1); CHLORIDE 106 mmol/L (98-107); CREATININE 6.04 mg/dL (0.7-1.3)
[2018-09-25 10:51] LABS: CREATININE,URINE RANDOM 70.8 mg/dL
== END | disposition home or self-care (01) ==
LOC: LAB 10:01
PROVIDERS: ATTEND Internal Medicine Hematology & Oncology
DX: I12.0 Hypertensive chronic kidney disease with stage 5 chronic kidney disease or end stage renal disease (principal); N18.5 Chronic kidney disease, stage 5; N25.81 Secondary hyperparathyroidism of renal origin; E85.9 Amyloidosis, unspecified; R80.9 Proteinuria, unspecified; D64.9 Anemia, unspecified
CPT/HCPCS: 36415; 80069; 81001; 82306; 82310; 82570; 83883; 83970; 84156; 85025

== ENCOUNTER → 2018-10-03 | Outpatient (CLI) | payer MEDICARE, OTHER | END | disposition home or self-care (01) | LOC: LAB 08:53 | PROVIDERS: ATTEND Internal Medicine Nephrology | DX: N25.81 Secondary hyperparathyroidism of renal origin (principal); I12.0 Hypertensive chronic kidney disease with stage 5 chronic kidney disease or end stage renal disease; N18.5 Chronic kidney disease, stage 5; E85.9 Amyloidosis, unspecified; R06.02 Shortness of breath; R80.9 Proteinuria, unspecified; D64.9 Anemia, unspecified; Z68.20 Body mass index [BMI] 20.0-20.9, adult; Z11.59 Encounter for screening for other viral diseases | CPT/HCPCS: 36415; 86480; 86705; 86706; 86709; 86803; 87340 ==

== ENCOUNTER → 2019-04-28 | Outpatient (CLI) | payer MEDICARE, OTHER ==
[2019-04-28 11:01] LABS: BASOPHILS # (AUTO) 0.01 x10^3/uL (0-0.1); BASOPHILS % (AUTO) 0 % (0-1); EOSINOPHILS # (AUTO) 0.33 x10^3/uL (0-0.4); EOSINOPHILS % (AUTO) 7 % (1-7); LYMPHOCYTES # (AUTO) 0.66 x10^3/uL (1-3.4); LYMPHOCYTES % (AUTO) 14 % (22-44); MD NO; MEAN CORPUSCULAR VOLUME 93.9 fL (81-97); MEAN PLATELET VOLUME 7.3 fL (7.4-10.4); MONOCYTES # (AUTO) 0.41 x10^3/uL (0.2-0.8); MONOCYTES % (AUTO) 9 % (2-9); NEUTROPHILS # (AUTO) 3.22 x10^3/uL (1.8-6.8); NEUTROPHILS % (AUTO) 70 % (42-75); PLATELET COUNT 208 x10^3/uL (130-400); RED BLOOD COUNT 3.58 x10^6/uL (4.38-5.82)
[2019-04-28 11:03] LABS: ALANINE AMINOTRANSFERASE 32 U/L (12-78); ALBUMIN 2.8 g/dL (3.4-5.0); ANION GAP 10 mmol/L (5-15); CALCIUM 8.1 mg/dL (8.5-10.1); CHLORIDE 106 mmol/L (98-107)
[2019-04-28 11:06] LABS: ALKALINE PHOSPHATASE 82 U/L (45-117); BILIRUBIN,TOTAL 0.2 mg/dL (0.2-1.0); TOTAL PROTEIN 6.7 g/dL (6.4-8.2)
== END | disposition home or self-care (01) ==
LOC: LAB 10:08
PROVIDERS: ATTEND Internal Medicine Hematology & Oncology
DX: Z51.11 Encounter for antineoplastic chemotherapy (principal); E85.81 Light chain (AL) amyloidosis; R53.0 Neoplastic (malignant) related fatigue; Z79.899 Other long term (current) drug therapy
CPT/HCPCS: 36415; 80053; 82784; 83883; 84155; 84156; 84165; 84166; 85025; 86334

== ENCOUNTER → 2019-10-27 | Outpatient (CLI) | payer MEDICARE, OTHER ==
[2019-10-27 14:08] LABS: ALANINE AMINOTRANSFERASE 37 U/L (12-78); ALBUMIN 2.8 g/dL (3.4-5.0); ANION GAP 11 mmol/L (5-15); CALCIUM 8.4 mg/dL (8.5-10.1); CHLORIDE 96 mmol/L (98-107)
[2019-10-27 14:10] LABS: ALKALINE PHOSPHATASE 88 U/L (45-117); BILIRUBIN,TOTAL 0.3 mg/dL (0.2-1.0); TOTAL PROTEIN 6.3 g/dL (6.4-8.2)
== END | disposition home or self-care (01) ==
LOC: LAB 13:40
PROVIDERS: ATTEND Internal Medicine Hematology & Oncology
DX: Z51.11 Encounter for antineoplastic chemotherapy (principal); E85.81 Light chain (AL) amyloidosis; R53.0 Neoplastic (malignant) related fatigue; R68.89 Other general symptoms and signs; Z79.899 Other long term (current) drug therapy
CPT/HCPCS: 36415; 80053; 82784; 83883; 84155; 84165; 86334

== ENCOUNTER → 2019-11-27 | Outpatient (CLI) | payer MEDICARE, OTHER ==
[2019-11-27 10:21] LABS: ALANINE AMINOTRANSFERASE 35 U/L (12-78); ALBUMIN 3.2 g/dL (3.4-5.0); ANION GAP 10 mmol/L (5-15); CALCIUM 9.1 mg/dL (8.5-10.1); CHLORIDE 100 mmol/L (98-107)
[2019-11-27 10:23] LABS: ALKALINE PHOSPHATASE 99 U/L (45-117); BILIRUBIN,TOTAL 0.3 mg/dL (0.2-1.0); TOTAL PROTEIN 7.2 g/dL (6.4-8.2)
== END | disposition home or self-care (01) ==
LOC: LAB 09:56
PROVIDERS: ATTEND Internal Medicine Hematology & Oncology
DX: Z51.11 Encounter for antineoplastic chemotherapy (principal); E85.81 Light chain (AL) amyloidosis; R53.0 Neoplastic (malignant) related fatigue; R68.89 Other general symptoms and signs; Z79.899 Other long term (current) drug therapy
CPT/HCPCS: 36415; 80053; 82784; 83883; 84155; 84165; 86334

== ENCOUNTER → 2019-12-29 | Outpatient (CLI) | payer MEDICARE, OTHER ==
[2019-12-29 15:26] LABS: ALANINE AMINOTRANSFERASE 36 U/L (12-78); ANION GAP 11 mmol/L (5-15); CHLORIDE 98 mmol/L (98-107)
[2019-12-29 15:28] LABS: ALKALINE PHOSPHATASE 100 U/L (45-117); BILIRUBIN,TOTAL 0.3 mg/dL (0.2-1.0); TOTAL PROTEIN 7.2 g/dL (6.4-8.2)
== END | disposition home or self-care (01) ==
LOC: LAB 13:37
PROVIDERS: ATTEND Internal Medicine Hematology & Oncology
DX: Z51.11 Encounter for antineoplastic chemotherapy (principal); E85.81 Light chain (AL) amyloidosis; R53.0 Neoplastic (malignant) related fatigue; R68.89 Other general symptoms and signs; Z79.899 Other long term (current) drug therapy
CPT/HCPCS: 36415; 80053; 82784; 83883; 84155; 84165; 86334

== ENCOUNTER → 2020-02-03 | Outpatient (CLI) | payer MEDICARE, OTHER ==
[2020-02-03 10:55] LABS: ALANINE AMINOTRANSFERASE 31 U/L (12-78); ALBUMIN 2.9 g/dL (3.4-5.0); ANION GAP 11 mmol/L (5-15); CHLORIDE 101 mmol/L (98-107)
[2020-02-03 10:57] LABS: ALKALINE PHOSPHATASE 92 U/L (45-117); BILIRUBIN,TOTAL 0.3 mg/dL (0.2-1.0); TOTAL PROTEIN 6.9 g/dL (6.4-8.2)
== END | disposition home or self-care (01) ==
LOC: LAB 10:21
PROVIDERS: ATTEND Internal Medicine Hematology & Oncology
DX: Z51.11 Encounter for antineoplastic chemotherapy (principal); E85.81 Light chain (AL) amyloidosis; R53.0 Neoplastic (malignant) related fatigue; R68.89 Other general symptoms and signs; Z79.899 Other long term (current) drug therapy
CPT/HCPCS: 36415; 80053; 82784; 83883; 84155; 84165; 86334

== ENCOUNTER → 2020-03-15 | Outpatient (CLI) | payer MEDICARE, OTHER ==
[~2020-03-15] MED LIST changes: +AMLO-211 PO; -AMLO10TA8 PO
[2020-03-15 12:18] LABS: ALBUMIN 3.1 g/dL (3.4-5.0); ANION GAP 8 mmol/L (5-15); CHLORIDE 99 mmol/L (98-107)
[2020-03-15 12:24] LABS: ALANINE AMINOTRANSFERASE 25 U/L (12-78); ALKALINE PHOSPHATASE 97 U/L (45-117); BILIRUBIN,TOTAL 0.4 mg/dL (0.2-1.0); TOTAL PROTEIN 7.5 g/dL (6.4-8.2)
== END | disposition home or self-care (01) ==
LOC: LAB 11:39
PROVIDERS: ATTEND Internal Medicine Hematology & Oncology
DX: Z51.11 Encounter for antineoplastic chemotherapy (principal); E85.81 Light chain (AL) amyloidosis; R53.0 Neoplastic (malignant) related fatigue; R68.89 Other general symptoms and signs; Z79.899 Other long term (current) drug therapy
CPT/HCPCS: 36415; 80053; 82784; 83883; 84155; 84165; 86334

== ENCOUNTER 2020-04-13 10:20 | Outpatient (CLI) | payer MEDICARE, OTHER ==
[2020-04-13 10:41] LABS: BASOPHILS % (AUTO) 1 % (0-1); EOSINOPHILS % (AUTO) 8 % (1-7); LYMPHOCYTES % (AUTO) 15 % (22-44); MEAN CORPUSCULAR HEMOGLOBIN 31.7 pg (27.5-34.5); MEAN CORPUSCULAR HGB CONC 34.2 g/dL (33.2-36.2); MEAN PLATELET VOLUME 6.6 fL (7.4-10.4); MONOCYTES % (AUTO) 12 % (2-9); NEUTROPHILS % (AUTO) 63 % (42-75); PLATELET COUNT 239 x10^3/uL (130-400); RED BLOOD COUNT 3.54 x10^6/uL (4.38-5.82); RED CELL DISTRIBUTION WIDTH 13.1 % (9.4-14.8)
[2020-04-13 10:43] LABS: MD NO
[2020-04-13 10:47] LABS: ALANINE AMINOTRANSFERASE 26 U/L (12-78); ALBUMIN 2.9 g/dL (3.4-5.0); ANION GAP 11 mmol/L (5-15); CALCIUM 8.8 mg/dL (8.5-10.1); CHLORIDE 98 mmol/L (98-107)
[2020-04-13 10:50] LABS: ALKALINE PHOSPHATASE 98 U/L (45-117); BILIRUBIN,TOTAL 0.3 mg/dL (0.2-1.0); TOTAL PROTEIN 6.9 g/dL (6.4-8.2)
== END 2020-04-13 23:59 | disposition home or self-care (01) ==
LOC: LAB 10:20
PROVIDERS: ATTEND Internal Medicine Hematology & Oncology
DX: Z51.11 Encounter for antineoplastic chemotherapy (principal); E85.81 Light chain (AL) amyloidosis; R53.0 Neoplastic (malignant) related fatigue; R68.89 Other general symptoms and signs; Z79.899 Other long term (current) drug therapy
CPT/HCPCS: 36415; 80053; 82784; 83883; 84155; 84165; 85025; 86334

== ENCOUNTER → 2020-06-08 | Outpatient (CLI) | payer MEDICARE, OTHER ==
[2020-06-08 10:53] LABS: BASOPHILS % (AUTO) 1 % (0-1); EOSINOPHILS % (AUTO) 7 % (1-7); LYMPHOCYTES % (AUTO) 17 % (22-44); MD NO; MEAN CORPUSCULAR HEMOGLOBIN 32.6 pg (27.5-34.5); MEAN CORPUSCULAR HGB CONC 34.7 g/dL (33.2-36.2); MEAN PLATELET VOLUME 6.4 fL (7.4-10.4); MONOCYTES % (AUTO) 14 % (2-9); NEUTROPHILS % (AUTO) 61 % (42-75); PLATELET COUNT 229 x10^3/uL (130-400); RED BLOOD COUNT 3.15 x10^6/uL (4.38-5.82); RED CELL DISTRIBUTION WIDTH 14.5 % (9.4-14.8)
[2020-06-08 11:04] LABS: ALANINE AMINOTRANSFERASE 24 U/L (12-78); ALBUMIN 2.9 g/dL (3.4-5.0); ANION GAP 11 mmol/L (5-15); CALCIUM 8.6 mg/dL (8.5-10.1); CHLORIDE 100 mmol/L (98-107)
[2020-06-08 11:06] LABS: ALKALINE PHOSPHATASE 99 U/L (45-117); BILIRUBIN,TOTAL 0.3 mg/dL (0.2-1.0); TOTAL PROTEIN 6.4 g/dL (6.4-8.2)
== END | disposition home or self-care (01) ==
LOC: LAB 10:35
PROVIDERS: ATTEND Internal Medicine Hematology & Oncology
DX: Z51.11 Encounter for antineoplastic chemotherapy (principal); E85.81 Light chain (AL) amyloidosis; R53.0 Neoplastic (malignant) related fatigue; R68.89 Other general symptoms and signs; Z79.899 Other long term (current) drug therapy
CPT/HCPCS: 36415; 80053; 82784; 83883; 84155; 84165; 85025; 86334

== ENCOUNTER → 2020-08-18 | Outpatient (CLI) | payer MEDICARE, OTHER ==
[2020-08-18 10:33] LABS: BASOPHILS % (AUTO) 1 % (0-1); EOSINOPHILS % (AUTO) 6 % (1-7); LYMPHOCYTES % (AUTO) 14 % (22-44); MD NO; MEAN CORPUSCULAR HEMOGLOBIN 32.3 pg (27.5-34.5); MEAN CORPUSCULAR HGB CONC 34.2 g/dL (33.2-36.2); MEAN PLATELET VOLUME 6.4 fL (7.4-10.4); MONOCYTES % (AUTO) 12 % (2-9); NEUTROPHILS % (AUTO) 67 % (42-75); PLATELET COUNT 219 x10^3/uL (130-400); RED BLOOD COUNT 3.43 x10^6/uL (4.38-5.82); RED CELL DISTRIBUTION WIDTH 13.2 % (9.4-14.8)
[2020-08-18 10:43] LABS: ALANINE AMINOTRANSFERASE 27 U/L (12-78); ALBUMIN 2.9 g/dL (3.4-5.0); ANION GAP 12 mmol/L (5-15); CALCIUM 8.5 mg/dL (8.5-10.1); CHLORIDE 100 mmol/L (98-107)
[2020-08-18 10:46] LABS: ALKALINE PHOSPHATASE 105 U/L (45-117); BILIRUBIN,TOTAL 0.2 mg/dL (0.2-1.0); TOTAL PROTEIN 6.8 g/dL (6.4-8.2)
== END | disposition home or self-care (01) ==
LOC: LAB 10:17
PROVIDERS: ATTEND Internal Medicine Hematology & Oncology
DX: Z51.11 Encounter for antineoplastic chemotherapy (principal); E85.81 Light chain (AL) amyloidosis; R53.0 Neoplastic (malignant) related fatigue; Z79.899 Other long term (current) drug therapy; R68.89 Other general symptoms and signs
CPT/HCPCS: 36415; 80053; 82784; 84155; 84165; 85025; 86334

== ENCOUNTER → 2020-11-18 | Outpatient (CLI) | payer MEDICARE, OTHER ==
[2020-11-18 10:21] LABS: BASOPHILS % (AUTO) 1 % (0-1); EOSINOPHILS % (AUTO) 4 % (1-7); LYMPHOCYTES % (AUTO) 11 % (22-44); MEAN CORPUSCULAR HEMOGLOBIN 31.5 pg (27.5-34.5); MEAN CORPUSCULAR HGB CONC 34.8 g/dL (33.2-36.2); MEAN PLATELET VOLUME 6.2 fL (7.4-10.4); MONOCYTES % (AUTO) 13 % (2-9); NEUTROPHILS % (AUTO) 71 % (42-75); PLATELET COUNT 346 x10^3/uL (130-400); RED BLOOD COUNT 3.16 x10^6/uL (4.38-5.82); RED CELL DISTRIBUTION WIDTH 13.5 % (9.4-14.8)
[2020-11-18 10:31] LABS: ANION GAP 8 mmol/L (5-15); CALCIUM 8.3 mg/dL (8.5-10.1); CHLORIDE 95 mmol/L (98-107)
[2020-11-18 10:35] LABS: ALANINE AMINOTRANSFERASE 24 U/L (12-78); ALKALINE PHOSPHATASE 115 U/L (45-117); BILIRUBIN,TOTAL 0.2 mg/dL (0.2-1.0); CREATININE 9.11 mg/dL (0.7-1.3); TOTAL PROTEIN 6.2 g/dL (6.4-8.2)
== END | disposition home or self-care (01) ==
LOC: LAB 10:01
PROVIDERS: ATTEND Internal Medicine Hematology & Oncology
DX: Z51.11 Encounter for antineoplastic chemotherapy (principal); E85.81 Light chain (AL) amyloidosis; R53.0 Neoplastic (malignant) related fatigue; R68.89 Other general symptoms and signs; Z79.899 Other long term (current) drug therapy
CPT/HCPCS: 36415; 80053; 82784; 83883; 84155; 84165; 85025; 86334